=== PATIENT | male | born 1945 | race Caucasian/White ===

== ENCOUNTER → 2019-02-10 17:01 | Emergency (ER) | payer OTHER ==
[~2019-02-10 17:01] MED LIST: Piperacillin/Tazobac ADVAN(*) 3.375 GM in NS 0.9% 100 ML* 100 ML IVPB ONE
--- NOTE | 2019-02-10 18:23 | ED ---
Lower Extremity - HPI Summary HPI Summary: Pt is a 69 y/o M presenting to the ED with a chief complaint of a potential toe infection. He states he stubbed his R hallux on 02/06/19, on the same toe that he has a callous, and he noticed yesterday it was purulent. Today, he noticed that the site started bleeding. He reports pain to the area as well as erythema and edema. - History of Current Complaint Chief Complaint: EDExtremityLower Stated Complaint: INFECTION IN RIGHT TOE, DIABETIC PER PT Time Seen by Provider: 02/10/19 18:07 Hx Obtained From: Patient Mechanism Of Injury: Blunt Trauma Onset of Pain: Immediate Onset/Duration: Hours Severity Initially: Moderate Severity Currently: Mild Pain Intensity: 2 Pain Scale Used: 0-10 Numeric Timing: Lasting Hours Location: Is Discrete @ - R hallux Associated Signs And Symptoms: Positive: Swelling, Redness, Other - purulence Aggravating Factor(s): Nothing Alleviating Factor(s): Nothing Able to Bear Weight: Yes - Allergies/Home Medications Allergies/Adverse Reactions: Allergies Allergy/AdvReac Type Severity Reaction Status Date / Time No Known Allergies Allergy Verified 02/10/19 17:05 PMH/Surg Hx/FS Hx/Imm Hx Previously Healthy: Yes Endocrine/Hematology History: Reports: Hx Diabetes Cardiovascular History: Reports: Hx Hypertension Neurological History: Reports: Hx Peripheral Neuropathy - L foot Infectious Disease History: No Infectious Disease History: Denies: Traveled Outside the [place] in Last 30 Days - Family History Known Family History: Positive: Hypertension, Diabetes - mother, Other - CVA father - Social History Alcohol Use: Occasionally Hx Substance Use: No Substance Use Type: Reports: None Hx Tobacco Use: Yes Smoking Status (MU): Former Smoker Review of Systems Positive: Myalgia - R hallux, Edema Positive: Other - erythema, bleeding, purulence to R hallux All Other Systems Reviewed And Are Negative: Yes Physical Exam - Summary Physical Exam Summary: Appearance: Well appearing, no pain distress Skin: warm, dry, reflects adequate perfusion Head/face: normal Eyes: EOMI, IVAN ENT: normal Neck: supple, non-tender Respiratory: CTA, breath sounds present Cardiovascular: RRR, pulses symmetrical Abdomen: non-tender, soft Musculoskeletal: strength/ROM intact. R hallux is erythematous and tender. There is a purulent blister present. Neuro: normal, sensory motor intact, A&Ox3 Triage Information Reviewed: Yes Vital Signs On Initial Exam: Initial Vitals Temp Pulse Resp BP Pulse Ox 98.3 F 70 18 173/92 98 02/10/19 17:03 02/10/19 17:03 02/10/19 17:03 02/10/19 17:03 02/10/19 17:03 Vital Signs Reviewed: Yes Diagnostics - Vital Signs Vital Signs Temp Pulse Resp BP Pulse Ox 02/10/19 17:03 98.3 F 70 18 173/92 98 - Laboratory Result Diagrams: 02/10/19 18:35 02/10/19 18:35 Lab Statement: Any lab studies that have been ordered have been reviewed, and results considered in the medical decision making process. - Radiology R hallux X-Ray Radiology Interpretation Completed By: ED Physician Summary of Radiographic Findings: No acute process. Pending official radiology report. Lower Extremity Course/Dx - Course Course Of Treatment: Pt is a 69 y/o M presenting to the ED with a chief complaint of a potential toe infection. Pt c/o R hallux purulence, bleeding, erythema, edema, and pain. On exam, the R hallux is erythematous and tender. There is a purulent blister present. Pt's R hallux X-Ray shows no acute process , pending official radiology report. I discussed the results with the patient and I advised him to be admitted to [facility] [place]. As the pt is new to the area, he is having insurance issues, and refused admission. He instead agreed to follow up with wound care. He will be d/c'ed home with dx of cellulitis of the R hallux and hx of diabetes, with instructions to follow up with wound care. - Diagnoses Differential Diagnosis/HQI/PQRI: Positive: Cellulitis, Infection Provider Diagnoses: Cellulitis of great toe, right, History of diabetes mellitus Discharge - Sign-Out/Discharge Documenting (check all that apply): Patient Departure Patient Received Moderate/Deep Sedation with Procedure: No - Discharge Plan Condition: Stable Disposition: HOME Prescriptions: Levofloxacin TAB* [Levaquin TAB*] 750 mg PO DAILY #10 tab Referrals: [facility] [Outside] Additional Instructions: Please follow up with the wound clinic as soon as possible. [facility] [address] [place] [address], [id number] Return to the emergency department with any new or worsening symptoms. - Billing Disposition and Condition Condition: STABLE Disposition: Home - Attestation Statements Document Initiated by Ree: Yes Documenting Scribe: Marlena Mclean Provider For Whom Ree is Documenting (Include Credential): Chidi Stover MD. Scribe Attestation: Marlena Chirinos, piotribed for Chidi Stover MD. on 02/10/19 at 2040. Scribe Documentation Reviewed: Yes Provider Attestation: The documentation as recorded by the Marlena mendes accurately reflects the service I personally performed and the decisions made by Chidi garrison MD. Status of Scribe Document: Viewed
[2019-02-10 19:03] LABS: ABS Basophils 0.1 10^3/ul (0-0.2); ABS Eosinophils 0.3 10^3/ul (0-0.6); ABS Lymphocytes 1.8 10^3/ul (1.0-4.8); ABS Monocytes 0.7 10^3/ul (0-0.8); Eosinophil % 4.3 %; Hematocrit 42 % (42-52); Hemoglobin 14.2 g/dL (14.0-18.0); Lymphocyte % 22.8 %; Mean Corpuscular HGB Conc 34 g/dL (31-36); Mean Corpuscular Hemoglobin 30 pg (27-31); Mean Corpuscular Volume 87 fL (80-94); Mean Platelet Volume 7.6 fL (7.4-10.4); Nucleated Red Blood Cells % 0.1; Platelet Count 294 10^3/uL (150-450); Red Blood Count 4.78 10^6 /uL (4.18-5.48); Red Cell Distribution Width 16 % (10.5-15); White Blood Count 7.9 10^3/uL (3.5-10.8)
[2019-02-10 19:13] LABS: Activated Partial Thrombo Time 36.7 seconds (26.0-36.3); INR 1.09 (0.82-1.09)
[2019-02-10 19:22] LABS: Albumin 4.4 g/dL (3.2-5.2); Albumin/Globulin Ratio 1.5 (1-3); BUN/Creatinine Ratio 14.9 (8-20); C Reactive Protein 8.09 mg/L (<8.01); Calcium 9.7 mg/dL (8.6-10.3); EGFR African American 70.9 (>60); EGFR Non-African American 58.6 (>60); Potassium 3.8 mmol/L (3.5-5.0); Total Bilirubin 0.4 mg/dL (0.2-1.0); Total Protein 7.4 g/dL (6.4-8.9)
[2019-02-10 20:40] VITALS: BP 160/95
== END | disposition home or self-care (01) ==
LOC: ED 17:01
DX: L03.031 Cellulitis of right toe (principal); E11.9 Type 2 diabetes mellitus without complications; R60.0 Localized edema; Z87.891 Personal history of nicotine dependence; I10 Essential (primary) hypertension
CPT/HCPCS: 36415; 80053; 83605; 85025; 85610; 85730; 86140; 87040; 96365; 99282; J2543